=== PATIENT | male | born 1960 | race Two or more races ===

== ENCOUNTER 2017-11-20 11:19 | Emergency (ER) | payer OTHER ==
[~2017-11-20] VITALS: Ht 175.3 cm; Wt 98.7 kg
[2017-11-20 11:50] VITALS: BP 110/78
[2017-11-20] MEDS ORDERED: FLEXERIL10 MG PO (12:57)
[2017-11-20] MEDS ORDERED: MOTRIN800 MG PO (12:57)
== END 2017-11-20 13:09 | disposition home or self-care (01) ==
LOC: EME 11:19
DX: S40.011A Contusion of right shoulder, initial encounter (principal); W20.8XXA Other cause of strike by thrown, projected or falling object, initial encounter; Y99.0 Civilian activity done for income or pay
CPT/HCPCS: 73030; 99281; 99284